=== PATIENT | female | born 1940 | race Caucasian/White ===

== ENCOUNTER 2021-06-17 08:57 | Day surgery (SDCO) | payer MEDICARE, OTHER ==
[~2021-06-17] VITALS: Ht 158 cm; Wt 66.0 kg
[~2021-06-17 08:57] MED LIST: BAYER CHEWABLE81 MG PO; CRESTOR10 MG PO; NORCO 5-325 TA1 EACH PO; OS-CAL500 MG PO; PERCOCET 5-3251 EACH PO; SYNTHROID88 MCG PO; VITAMIN D21250 MCG PO; XARELTO10 MG PO
[2021-06-17 10:31] LABS: ALBUMIN 3.4 g/dL (3.4-5.0); BILIRUBIN - TOTAL 1.1 mg/dL (0.2-1.0); BUN/CREAT RATIO (CALC) 32.4 RATIO; CREATININE 0.68 mg/dL (0.51-0.95); GLOBULIN (CALCULATION) 3.7 g/dL; POTASSIUM 4.1 mmol/L (3.5-5.1); TOTAL PROTEIN 7.1 g/dL (6.4-8.2)
[2021-06-17 10:34] LABS: HCT 32.7 % (37.0-47.0); HGB 10.5 g/dl (12.5-16.0); MCH 31.1 pg (25.0-31.0); MCHC 32.1 g/dL (32.0-36.0); MCV 96.7 fL (78.0-100.0); MPV 9.5 fL (6.0-9.5); RBC 3.38 M/uL (4.20-5.40); RDW 13.9 % (11.5-14.0)
[2021-06-17 10:42] LABS: INR 1.08 (0.9-1.2); PROTHROMBIN TIME 13.4 SECONDS (11.8-13.4); PTT 26.1 SECONDS (24.4-34.7)
[2021-06-18 06:31] LABS: BASOPHIL 0.1 % (0-2); EOSINOPHIL 0.2 % (0-7); HCT 24.6 % (37.0-47.0); HGB 7.8 g/dl (12.5-16.0); LYMPHOCYTE 10.5 % (15-48); MCH 31.1 pg (25.0-31.0); MCHC 31.7 g/dL (32.0-36.0); MONOCYTE 7.8 % (0-12); NRBC 0; PLT 248 K/uL (150-400); RBC 2.51 M/uL (4.20-5.40); RDW 14.2 % (11.5-14.0); WBC 9.7 K/uL (4.0-10.5)
[2021-06-18 06:58] LABS: BUN/CREAT RATIO (CALC) 22.2 RATIO; CREATININE 0.72 mg/dL (0.51-0.95); POTASSIUM 4.2 mmol/L (3.5-5.1)
[2021-06-19 05:57] LABS: BILIRUBIN NEGATIVE (NEGATIVE); BLOOD NEGATIVE Ery/uL (NEGATIVE); CLARITY CLEAR (CLEAR); COLOR YELLOW (YELLOW); GLUCOSE (U) NORMAL (NORMAL); LEUKOCYTES NEGATIVE Leu/uL (NEGATIVE); NITRITE NEGATIVE (NEGATIVE); PROTEIN NEGATIVE (NEGATIVE)
[2021-06-19 05:58] LABS: BASOPHIL 0.2 % (0-2); EOSINOPHIL 1.2 % (0-7); HCT 23.6 % (37.0-47.0); HGB 7.4 g/dl (12.5-16.0); LYMPHOCYTE 15.1 % (15-48); MCH 30.8 pg (25.0-31.0); MCHC 31.4 g/dL (32.0-36.0); MCV 98.3 fL (78.0-100.0); MONOCYTE 7.4 % (0-12); MPV 9.3 fL (6.0-9.5); NEUTROPHIL 75.6 % (41-80); NRBC 0; PLT 247 K/uL (150-400); RDW 14.5 % (11.5-14.0); WBC 10.9 K/uL (4.0-10.5)
[2021-06-19 06:32] LABS: ALBUMIN 2.6 g/dL (3.4-5.0); BILIRUBIN - TOTAL 0.9 mg/dL (0.2-1.0); BUN/CREAT RATIO (CALC) 21.2 RATIO; CREATININE 0.66 mg/dL (0.51-0.95); POTASSIUM 3.5 mmol/L (3.5-5.1); TOTAL PROTEIN 5.6 g/dL (6.4-8.2)
[2021-06-19] MEDS ORDERED: PANTOPRAZOLE SO40 MG PO (11:18)
[2021-06-19] MEDS ORDERED: FEOSOL325 MG PO (11:18)
[2021-06-19] MEDS ORDERED: XARELTO10 MG PO (11:18)
== END 2021-06-19 14:36 | disposition home health service (06) ==
LOC: FOFB 08:57 → FAS 08:57 → EDSTATUS 12:00 → FAS 12:30 → FOFB 18:18 → FMS 06-18 12:41 → FAS 06-18 12:41 → FMS 06-19 14:36
PROVIDERS: Internal Medicine; Legal Medicine; Nurse Practitioner; ADMIT Allergy & Immunology Allergy
DX: M97.01XA Periprosthetic fracture around internal prosthetic right hip joint, initial encounter (principal); D62 Acute posthemorrhagic anemia; E03.9 Hypothyroidism, unspecified; Z79.82 Long term (current) use of aspirin; Z79.899 Other long term (current) drug therapy; Z91.81 History of falling; Z96.641 Presence of right artificial hip joint
CPT/HCPCS: 36415; 71045; 73501; 80048; 80053; 81003; 85025; 85610; 85730; 86850; 86900; 86901; 93005; 94010; 97163; 97166; 97530-GP; 97535; C1713; C1776; G0378; J0171; J0697; J1170; J2250; J2270; J2405; J2795; J3010; J7120